=== PATIENT | male | born 1985 | race Caucasian/White ===

== ENCOUNTER 2020-11-11 13:37 | Emergency (ER) | payer OTHER, SELFPAY ==
[2020-11-11 13:38] VITALS: BP 115/75; PULSE 69; RESP 18; TEMP 36.7; O2SAT 100; BMI 22.8
--- NOTE | 2020-11-11 13:50 | HMH.EDGENADL ---
ED Disposition Clinical Impression: Dental infection, Dental caries Disposition: Home, Self-Care Condition on Discharge: Good Instructions: DI for Tooth Abscess, DI for Tooth Decay, DI for Dental Pain Additional Instructions: Amoxicillin as prescribed. Additional instructions for DENTAL PROBLEMS: See a dentist as soon as possible for further evaluation. Return immediately if you have an uncontrollable fever greater than 102 degrees, difficulty breathing or shortness of breath, persistent vomiting, or inability to swallow. Prescriptions: Amoxicillin [Amoxicillin 500mg Cap] 500 mg PO TID #30 cap Transmission Status: Pending to Clinic [facility] Referrals: PCP,No [Primary Care Provider] - - Critical Care Critical Care Time: No Attestation: On 11/11/20, the high probability of a clinically significant, sudden or life threatening deterioration of the following system(s) required my full and direct attention, intervention and personal management. The time I documented below is in addition to time spent performing reported procedures but includes the following listed in this critical care notation. Medical Decision Making - Lan Inquiry Pt receiving controlled substance: No Vital Signs: 11/11/20 13:38 11/11/20 14:00 Temperature 98.0 F Temperature Source Oral Pulse Rate 70 Pulse Rate [Left Radial] 69 Respiratory Rate 18 Blood Pressure 102/81 L Blood Pressure [Right Arm] 115/75 Blood Pressure Mean 88 Blood Pressure Mean [Right Arm] 88 Blood Pressure Source [Right Arm] Automatic Cuff Blood Pressure Position [Right Arm] Sitting 02 Sat by Pulse Oximetry 100 99 Oxygen Delivery Method Room Air General Adult HPI - General Stated complaint: possible tooth abcess Time Seen by Provider: 11/11/20 13:51 - History of Present Illness HPI narrative: Complains of an abscessed tooth. Has some pain and swelling of the left anterior chin for the past 3 days. Low-grade fever. States he has had dental infections before and he is usually prescribed amoxicillin. He refuses any intramuscular injections. His dentist is in [facility]. He had an appointment to be seen yesterday but says that he overslept. Says his teeth are all bad and he is supposed to get them all removed. He is on Suboxone. States he does not want any pain medication. - Related Data Previous Rx's Medication Instructions Recorded Amoxicillin [Amoxicillin 500mg 500 mg PO TID #30 cap 11/11/20 Cap] Allergies Allergy/AdvReac Type Severity Reaction Status Date / Time No Known Allergies Allergy Unverified 08/12/17 15:[address] [facility] History - Hepatitis A Screen Attestation statement:: This patient has been screened for Hepatitis A risk factors. I have reviewed the patient's past medical history: Yes ROS Obtained: Yes Systems reviewed as appropriate & no additional complaints - Constitutional Constitutional: Reports fever(s) - ENT Ears, Nose, Mouth, and Throat: Reports as per HPI, Denies difficulty swallowing, Reports facial pain - Respiratory Respiratory: Denies dyspnea Physical Exam - General General appearance: alert, in no apparent distress - Head Head exam: atraumatic, normocephalic - Expanded Head Exam 1 - Edema, tenderness. No erythema. No fluctuance. - Eye Eye exam: Present: normal appearance, EOMI - ENT ENT exam: Present: mucous membranes moist - Expanded ENT Exam 1 - Other (severe decay) Comment: No submandibular or sublingual swelling. No elevation of the tongue. No trismus, stridor, drooling. Airway patent. - Neck Neck exam: Present: normal inspection, full ROM. Absent: meningismus - Respiratory Respiratory exam: Absent: respiratory distress - Cardiovascular Cardiovascular exam: Present: regular rate -
[2020-11-11 14:00] VITALS: BP 102/81; PULSE 70; O2SAT 99
[2020-11-11 14:27] VITALS: BP 102/81; PULSE 70; RESP 20; TEMP 36.7; O2SAT 99
== END 2020-11-11 14:28 | disposition home or self-care (01) ==
PROVIDERS: Emergency Provider Emergency Medicine
DX: K04.7 Periapical abscess without sinus (principal); K02.9 Dental caries, unspecified
CPT/HCPCS: 99281

== ENCOUNTER → 2020-12-11 14:08 | Outpatient (CLI) | payer OTHER, SELFPAY | PROVIDERS: Visit Provider Physician Assistant | DX: Z20.822 Contact with and (suspected) exposure to COVID-19 (principal) | CPT/HCPCS: U0003 ==

== ENCOUNTER 2023-07-07 16:54 | Emergency (ER) | payer OTHER, SELFPAY ==
[2023-07-07 16:56] VITALS: BP 138/73; PULSE 93; RESP 18; TEMP 38.4; O2SAT 98; BMI 24.3
--- NOTE | 2023-07-07 17:18 | HMH.EDGENADL ---
Discharge Plan Disposition Chief Complaint: Fever Prescriptions Prescriptions: No Action amoxicillin 500 MG capsule 500 mg PO TID Qty: 30 0RF Referrals Follow up/Referrals: Provider,Referral, MD [Primary Care Provider] - See instructions Activity Restrictions/Add. Instructions Additional Instructions/Restrictions: At this time it was felt you are safe to be discharged home. If new or worsening symptoms please do not hesitate to return the emergency department. If symptoms persist please follow-up with your family doctor as you are able. Clinical Impressions Clinical Impression: Pharyngitis Discharge ED Provider: Haresh Harvey General Adult HPI General Chief complaint: Fever Stated complaint: SORE THROAT AND FEVER Time Seen by Provider: 07/07/23 17:10 History of Present Illness HPI narrative: Patient is a 37-year-old male with no pertinent past medical history presents emergency department for evaluation of sore throat, generalized body aches. Onset was acute, in the last 3 to 4 days. Positive sick contact with with similar symptoms. No other acute complaints at this time. Related Data Previous Rx's Medication Instructions Recorded amoxicillin 500 mg capsule 500 mg PO TID #30 caps 11/11/20 Allergies Allergy/AdvReac Type Severity Reaction Status Date / Time No Known Allergies Allergy Unverified 08/12/17 15:15 [facility] Disclaimer: The information contained in this section may have been updated after the patient was seen, as this information can be updated by other users. Social History Smoking Status: Current every day smoker alcohol intake: never current occupational status: other Travel in the last 8 weeks: None ROS Obtained: Yes Systems reviewed as appropriate & no additional complaints except as documented Physical Exam General General appearance: alert and in no apparent distress Head Head exam: atraumatic and normocephalic Eye Eye exam: Present PERRL and EOMI ENT ENT exam: Present mucous membranes moist and other (Bilateral erythematous tonsils mild asymmetry left greater than right with exudate, uvula midline.) Neck Neck exam: Present normal inspection and full ROM Chest Chest inspection: Present normal inspection and symmetric chest wall rise Respiratory Respiratory exam: Present normal lung sounds bilaterally; Absent respiratory distress Cardiovascular Cardiovascular exam: Present regular rate and normal rhythm Abdominal Exam Abdominal exam: Present soft Extremities Exam Extremities exam: Present normal inspection Neurological Exam Neurological exam: Present alert; Absent motor sensory deficit Psychiatric Psychiatric exam: Present normal affect Skin Skin exam: Present warm and dry Medical Decision Making Lan Inquiry Pt receiving controlled substance: No Vital Signs: 07/07/23 16:56 07/07/23 18:29 Temperature 101.1 F H Temperature Source Oral Pulse Rate 76 Pulse Rate [Left Radial] 93 H Respiratory Rate 18 18 Blood Pressure 111/64 Blood Pressure [Left Arm] 138/73 Blood Pressure Mean [Left Arm] 94 Blood Pressure Source Automatic Cuff Blood Pressure Source [Left Arm] Automatic Cuff Blood Pressure Position Sitting Blood Pressure Position [Left Arm] Sitting 02 Sat by Pulse Oximetry 98 100 Oxygen Delivery Method Room Air Room Air Lab Data Lab Results 07/07/23 17:06: SARS-CoV-2 (PCR) Not detected, Influenza A Untype (PCR) Not detected, Influenza Type B (PCR) Not detected, Group A Strep Rapid Negative Orders (Tests/Meds): ED MEDICATIONS Discontinued Medications Generic Name Dose Route Start Last Admin Trade Name Freq PRN Reason Stop Dose Admin Acetaminophen 1,000 mg 07/07/23 17:17 07/07/23 17:36 Acetaminophen 500mg Tab PO 07/07/23 17:18 1,000 mg ONCE ONE Administration Belladonna Alkaloids 60 ml 07/07/23 17:17 07/07/23 17:36 Belladonna Alkaloids 60 Ml Ml PO 07/07/23 17:18 60 ml
[2023-07-07 17:25] LABS: Coronavirus 19, PCR Not Detected (NotDetected); Influenza A, PCR Not Detected (NotDetected); Influenza B, PCR Not Detected (NotDetected)
[2023-07-07 17:43] LABS: Strep Scrn Group A (Rapid) Negative (Negative)
--- NOTE | 2023-07-07 18:20 | PC.NURSE ---
pt states he feels much better after medication. er md aware.
[2023-07-07 18:29] VITALS: BP 111/64; PULSE 76; RESP 18; O2SAT 100
[2023-07-07 18:40] VITALS: BP 122/68; PULSE 75; RESP 18; TEMP 36.9; O2SAT 99
== END 2023-07-07 18:44 | disposition home or self-care (01) ==
PROVIDERS: Emergency Provider Emergency Medicine
DX: R07.0 Pain in throat (principal); R50.9 Fever, unspecified; Z87.891 Personal history of nicotine dependence
CPT/HCPCS: 87430; 87636; 99284